=== PATIENT | female | born 1995 | race African-American/Black ===

== ENCOUNTER 2022-11-07 17:41 | Emergency (ER) | payer SELFPAY ==
[2022-11-07 17:42] VITALS: BP 119/70; PULSE 67; RESP 18; TEMP 36.4; O2SAT 100; BMI 40.6
--- NOTE | 2022-11-07 19:33 | EX.ED.DYSGE1 ---
HPI History of Present Illness Chief Complaint: Wound Check Informant: patient and friend Narrative Narrative: Patient is a 26-year-old female, Azerbaijani speaking, friend at the bedside to translate. She is presenting with postoperative abdominal pain, back pain and headaches. Patient had a 4 weeks ago in [facility]. This was a repeat . She states 3 days after the she started having weird pain at her incision site. Is been constant but she feels it is getting better. It was improved with Motrin but she ran out of it. 2 weeks ago she came to [place]. She notes the day she was discharged from the hospital she was diagnosed with pneumonia and put on 10 days of antibiotics. She also states that since her she has had low back pain and numbness in her right outer thigh. She did have an epidural with her . She did not tell her surgeon about this but they did not do anything or seem concerned. She notes that she had some intermittent leg swelling which has resolved and she is also had a mild headache. She denies having any issues with her blood pressure. She notes that at 8 months she traveled on foot from [facility] to [place] and came into the [facility] via an asylum program. Patient has had some drainage from her incision site. She is worried there might be something still at her because of the way the pain is. She went to an urgent care earlier but was transferred to the ER for further evaluation because of her degree of abdominal pain. Patient does not have any physician or [employer] locally. She is now residing in [facility] Medical History no medical history Home Medications acetaminophen 500 mg tablet 1,000 mg PO Q6H PRN pain #20 tabs 11/07/22 [Rx Last Taken Unknown] ibuprofen 600 mg tablet 600 mg PO Q6H PRN PRN pain #20 TABLETS 11/07/22 [Rx Last Taken Unknown] Allergy/AdvReac Type Severity Reaction Status Date / Time No Known Allergies Allergy Verified 11/07/22 17:44 Social History Smoking Status: Never smoker ROS ROS ED Constitutional Constitutional ED: Denies chills or fever(s) Eyes Eyes: Denies change in vision ENT ENT ED: Denies sore throat Cardiovascular Cardiovascular: Denies chest pain or palpitations Respiratory/Chest Respiratory/Chest: Reports dyspnea; Denies cough Gastrointestinal Gastrointestinal: Reports abdominal pain; Denies constipation, diarrhea, nausea or vomiting Genitourinary Genitourinary ED: Reports other Details: no vaginal bleeding currently ; Denies dysuria or hematuria Musculoskeletal Musculoskeletal: Reports back pain; Denies arthralgias or myalgias Integumentary Denies rash Neurologic Neurologic: Reports headache(s) and paresthesias RLE Psychiatric Psychiatric: Denies anxiety Hematologic/Lymphatic Hematologic/Lymphatic: Denies easy bleeding or easy bruising EXAM Physical Exam Const Vital Signs: 11/07/22 17:42 11/07/22 20:21 11/07/22 20:21 Temperature 97.5 F L 97.9 F Temperature Source Temporal Temporal Pulse Rate 67 70 70 Respiratory Rate 18 18 Blood Pressure 119/70 118/70 Blood Pressure Mean 86 86 Pulse Ox 100 97 Oxygen Delivery Method Room Air Nasal Cannula Positive well nourished, well developed and obese General Appearance ED: well developed and NAD Nutritional Appearance: obese HEENT Reports moist mucous membranes Negative for trauma Eyes PERRL and EOMs intact bilaterally Neck supple Neck Narrative: No meningeal signs General: Negative for tenderness Chest Wall inspection of chest normal and palpation of chest normal Resp normal respiratory effort and clear to auscultation bilaterally Cardio regular rhythm and no murmurs Rate: tachycardic GI GI Narrative: Patient has significant tenderness at incision site. Uterus is palpated at the level of the umbilicus. No peritoneal signs. Inspection: Negative for abdominal distention Auscultation: normoactive bowel sounds Palpation: soft and tender suprapubic Back/Spine no CVA tenderness Back/Spine Narrative: Lower lumbar and paraspinal tenderness to palpation. No overlying erythema. No pinpoint area of tenderness to palpation Lumbar Spine / Lower Back: lumbar spinal tenderness Extremity normal to inspection General Extremety ED: Negative for edema or tenderness General Extremity: Negative for edema Neuro oriented x3 Sensorium / Orientation: alert Motor Exam: Negative for general weakness Psych mental status grossly normal Skin Skin Narrative: Healing low transverse surgical incision. No associated erythema or drainage appreciated at this time. The area is slightly macerated however patient does have a protuberant abdomen that folds over the area. MDM MDM MDM Narrative Medical decision making narrative: Patient is evaluated for multiple complaints after . She appears nontoxic no acute distress. She has a lot of tenderness in her lower abdomen, more than I would expect this see given that she is 4-week status post . Do not see any obvious drainage or signs of cellulitis. She has a mild anemia of 10.0 which seems asymptomatic as she is not lightheaded and has normal vital signs. Suspect this is relatively normal given her postoperative status. She does not have a leukocytosis. CMP unremarkable. Urinalysis is normal with no signs of protein or infection. She is not hypertensive I do not think this is preeclampsia. CT of the abdomen and pelvis shows postsurgical changes but no signs of fluid collection, abscess or cellulitis. I do not think patient requires antibiotics. Case is discussed with [employer] on-call, Dr. Cynthia Simmons, who is agreeable with outpatient follow-up. Patient is given an abdominal binder. She is given IV fluids and Toradol in the ER does seem more comfortable. Is given a referral to the [facility]. Will be discharged with prescription for ibuprofen and Tylenol. Counseled that she does not have to fill the prescription she can just take [id number] Tylenol and ibuprofen instead. [employer] Technician used for all interactions with the patient. Patient given return precautions. Discharged home in stable condition. Lab Data Labs: Laboratory Results - last 24 hr 11/07/22 11/07/22 11/07/22 19:44 19:45 20:00 WBC 8.2 RBC 3.65 L Hgb 10.0 L Hct 33.5 L MCV 91.8 MCH 27.4 MCHC 29.9 L RDW Std Deviation 49.2 H RDW Coeff of Tejal 14.6 Plt Count 454 H MPV 9.5 Immature Gran % (Auto) 0.200 Neut % (Auto) 59.7 Lymph % (Auto) 30.6 [place] % (Auto) 6.7 Eos % (Auto) 2.1 Baso % (Auto) 0.7 Absolute Neuts (auto) 4.9 Absolute Lymphs (auto) 2.52 Nucleated RBC % 0 Sodium 137 Potassium 3.9 Chloride 107 Carbon Dioxide 28.0 Anion Gap 2 L BUN 13 Creatinine 0.58 Estim Creat Clear Calc 129.94 Est GFR (MDRD) Af Amer 160 Est GFR (MDRD) Non-Af 132 BUN/Creatinine Ratio 22.6 H Glucose 89 Calcium 9.7 Total Bilirubin 0.20 AST 26 ALT 35 Alkaline Phosphatase 142 H Total Protein 7.6 Albumin 3.5 Globulin 4.1 Albumin/Globulin Ratio 0.9 Urine Color Yellow Urine Clarity Clear Urine pH 6.5 Ur Specific [place] 1.015 Urine Protein Negative Urine Glucose (UA) Normal Urine Ketones Negative Urine Occult Blood Negative Urine Nitrite Negative Urine Bilirubin Negative Urine Urobilinogen Normal Ur Leukocyte Esterase Negative Urine RBC 0 SEEN Urine WBC 0 SEEN Ur Squamous Epith Cells 0-5 SEEN Urine Bacteria 0 SEEN Urine Mucus 0 SEEN Urine Test Negative Radiography Chest X-Ray - ED: 2 View, Read by ED Physician, Read by Radiologist and No Acute Disease Diagnostic Testing: Clinical Impression(s) from Imaging Studies Abdomen/Pelvis CT 11/07/22 20:31 IMPRESSION: Mildly enlarged uterus with visible scar overlying stranding density in the surrounding mesenteric fat likely representing normal postsurgical changes. No focal fluid collection or abnormal free fluid in the pelvis. Otherwise normal exam. Electronically Signed: Pablo Sharp DO at 21:33 EDT , Chest X-Ray 11/07/22 20:35 IMPRESSION: 1. No radiographic evidence of acute cardiopulmonary disease. Electronically Signed: Pablo Sharp DO at 21:12 EDT , Discharge Plan Triage Chief Complaint: Wound Check ED Provider: Mariluz Hook Dx/Rx/DC Orders Clinical Impression: Status post section, Lower abdominal pain, Headache, Paresthesia of right lower extremity Instructions: ED Post Op Wound Check, Pain Prescriptions: New ibuprofen 600 mg tablet 600 mg PO Q6H PRN PRN (Reason: pain) Qty: 20 0RF acetaminophen 500 mg tablet 1,000 mg PO Q6H PRN (Reason: pain) Qty: 20 0RF Primary Care Provider: Care Physician,No Primary Referrals: Cynthia Simmons DO [Med Staff - Active Staff] - 1 Week [facility] [Non-Staff] - As soon as possible Care Physician,No Primary [Primary Care Provider] - Activity Restrictions/Additional Instructions: Wear the abdominal binder. This should help with pain. Alternate ibuprofen and Tylenol. No signs of infection or acute abnormalities on your work-up today. Please follow-up with [employer]. You have also been referred to medical clinic for outpatient follow up/routine health maintenance. Disposition Disposition: Home, Self Care
[2022-11-07 19:50] LABS: Absolute Lymphocyte Count 2.52 X10^3/uL (0.83-4.51); Absolute Neutrophil Count 4.9 X10^3/uL (2.0-7.7); Basophil# 0.06 X10^3/uL; Basophil% 0.7 % (0-1); Eosinophil# 0.17 X10^3/uL; Eosinophils% 2.1 % (0-5); Hematocrit 33.5 % (37-47); Lymphocyte # 2.52 X10^3/ul (0.83-4.51); Lymphocyte % 30.6 % (19-41); Mean Corp Hgb Conc 29.9 g/dL (32-36); Mean Corpuscular Hgb 27.4 pg (27.0-32.0); Mean Corpuscular Volume 91.8 fL (81-99); Mean Platelet Vol. 9.5 fl (6.2-12.0); Monocyte# 0.55 X10^3/uL; Monocyte% 6.7 % (0-10); NRBC Flagged by Analyzer 0 % (0-5); Neutrophil # 4.91 X10^3/uL (2.7-7.7); Neutrophil % 59.7 % (47-70); Platelet Count 454 K/mm3 (150-450); RBC Distribution Width CV 14.6 % (11.6-14.6); RBC Distribution Width SD 49.2 fl (35.1-43.9); Red Blood Count 3.65 M/mm3 (4.2-5.4); White Blood Count 8.2 K/mm3 (4.4-11.0)
[2022-11-07] MEDS: Ketorolac 15 MG/ML Vial IV (20:05)
[2022-11-07] MEDS: 0.9% Normal Saline 1,000 ML 1000 ML IV (20:05)
[2022-11-07 20:13] LABS: ALB/GLOB Ratio 0.9 RATIO (0.9-2.4); AST(SGOT) 26 U/L (15-37); Alanine Aminotransfer ALT/SGPT 35 U/L (13-56); Albumin, Serum 3.5 g/dL (3.2-5.0); Alkaline Phosphatase 142 U/L (45-117); Anion Gap 2 (5-15); BUN 13 mg/dL (7-18); BUN/Creat Ratio 22.6 RATIO (10-20); Calcium,Total 9.7 mg/dL (8.5-10.1); Chloride 107 mmol/L (98-107); Creatinine, Serum 0.58 mg/dL (0.55-1.02); EST Glomerular Filtration Rate 132 mL/min (>60); Est Glom Filt Rate - Afr Amer 160 mL/min (>60); Estimated Creatinine Clearance 129.94 ml/min; Globulin 4.1 g/dL (2.2-4.2); Glucose 89 mg/dL (74-106); Potassium 3.9 mmol/L (3.5-5.1); Protein, Total 7.6 g/dL (6.4-8.2); Sodium Level 137 mmol/L (136-145)
[2022-11-07 20:21] VITALS: BP 118/70; PULSE 70; RESP 18; TEMP 36.6; O2SAT 97
--- NOTE | 2022-11-07 20:31 | CT_ITS ---
INDICATION: lower abd pain, s/p c cection, lumbar back pain EXAMINATION: CT ABDOMEN AND PELVIS WITH CONTRAST - CT Abdomen And Pelvis W/ Contrast Injection TECHNIQUE: Helically acquired images were obtained of the abdomen and pelvis following IV contrast. A radiation dose optimization technique was used for this scan. IV Contrast dosage and agent: 100 mL of Isovue-300. Oral contrast: None. COMPARISON: None. FINDINGS: LOWER CHEST: Lung bases are clear. No cardiomegaly or pericardial effusion. LIVER: Homogeneous. No focal mass. GALLBLADDER AND BILIARY TREE: No calcified gallstones. No gallbladder distension or wall edema. No intra- or extrahepatic biliary ductal dilation. PANCREAS: No focal cystic or solid mass. SPLEEN: Normal size without focal cystic or solid mass. ADRENAL GLANDS: No nodules. KIDNEYS, URETERS and BLADDER: Normal renal size and position. No mass. No hydronephrosis. Bladder is unremarkable. PERITONEUM: No ascites or free air. No other fluid collection. BOWEL: Normal appendix identified. No abnormally distended bowel loops or air fluid levels. No wall thickening or mass. No focal inflammatory changes. LYMPH NODES: No enlarged mesenteric or retroperitoneal lymph nodes. VESSELS: Aorta is non-dilated. REPRODUCTIVE ORGANS: The uterus is mildly enlarged. There is a scar visible. No focal mass lesion. Mild stranding density anterior to the motor uterine segment near the scar likely representing postsurgical changes from recent . No regional fluid collection or other evidence of complication. Ovaries are within normal limits of the exam. ABDOMINAL WALL: No discrete abdominal or pelvic wall hernia. BONES: No lytic or blastic abnormality. CT/Abdomen/Pelvis W IV Cont ONLY IMPRESSION: Mildly enlarged uterus with visible scar overlying stranding density in the surrounding mesenteric fat likely representing normal postsurgical changes. No focal fluid collection or abnormal free fluid in the pelvis. Otherwise normal exam. Electronically Signed: Pablo Sharp DO at 21:33 EDT ,
--- NOTE | 2022-11-07 20:35 | RAD_ITS ---
INDICATION: SOB EXAMINATION/TECHNIQUE: X-RAY - XR Chest 2 Views COMPARISON: None. FINDINGS: LINES/DEVICES: None. LUNGS: Symmetric normal lung volumes. No airspace opacity or abnormal interstitial pattern. No nodule or mass. No pleural effusion or pneumothorax. MEDIASTINUM AND CARDIOVASCULAR STRUCTURES: Normal size and contour of the cardiomediastinal silhouette. No evidence of pulmonary vascular congestion. BONES AND SOFT TISSUES: No fracture or focal osseous lesion. RAD/Chest PA and Lateral IMPRESSION: 1. No radiographic evidence of acute cardiopulmonary disease. Electronically Signed: Pablo Sharp DO at 21:12 EDT ,
[2022-11-07 20:44] LABS: Bacteria 0 SEEN /hpf (None Seen); Mucous, Urine 0 SEEN /hpf (<or=2+); Red Blood Cells-Urine 0 SEEN /hpf (0-5); White Blood Cells 0 SEEN /hpf (0-5)
[2022-11-07 20:51] LABS: Color, Urine Yellow (Yellow); Glucose, Dipstick Normal (Normal); Ketone-Dipstick Negative (Negative); Leukocyte Esterase-Dipstick Negative /ul (Negative); Nitrite-Dipstick Negative (Negative); Occult Blood-Urine Negative /ul (Negative); Protein-Dipstick Negative (Negative); Specific Gravity, Urine 1.015 (1.002-1.030); Urine Bilirubin Dipstick Negative (Negative); Urine Clarity Clear (Clear); Urine Urobilinogen Normal (Normal); Urine pH 6.5 (5.0 - 8.0)
[2022-11-07 21:03] LABS: Squamous Epithelial Cells - UA 0-5 SEEN /hpf (5-10)
[2022-11-07 21:07] LABS: Internal QC Validated? YES +Cl - CLEAR BKGD; Pregnancy, Urine Negative Negative
== END 2022-11-07 23:24 | disposition home or self-care (01) ==
PROVIDERS: Emergency Provider Emergency Medicine; Visit Provider Emergency Medicine
DX: O90.89 Other complications of the puerperium, not elsewhere classified (principal); R10.30 Lower abdominal pain, unspecified; R51.9 Headache, unspecified; M54.9 Dorsalgia, unspecified
CPT/HCPCS: 71046; 74177; 80053; 81001; 81025; 85025; 96361; 96374; 99283; J7030; Q9967

== ENCOUNTER 2024-02-16 18:33 | Emergency (ER) | payer SELFPAY ==
[2024-02-16 18:35] VITALS: BP 139/79; PULSE 123; RESP 24; TEMP 36.6; O2SAT 100
--- NOTE | 2024-02-16 18:42 | EKG12_ITS ---
Test Reason : ALT LOC Blood Pressure : / mmHG Vent. Rate : 118 BPM Atrial Rate : 118 BPM P-R Int : 150 ms QRS Dur : 076 ms QT Int : 314 ms P-R-T Axes : 044 052 014 degrees QTc Int : 440 ms Sinus tachycardia Otherwise normal ECG Confirmed by GLENNY PEREZ, CASA ([id number]), senior editor MARY MORRIS ([id number]) on 02/18/2024 2:28:08 PM Referred By: Confirmed By:SHABBIR MURRIETA MD
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
[2024-02-16] MEDS: LORazepam 2 MG/ML Syringe 1 MG IV (18:50)
[2024-02-16] MEDS: 0.9% Normal Saline (1000mL) 1,000 ML 999 ML IV (18:50)
[2024-02-16 18:55] LABS: Absolute Lymphocyte Count 2.99 X10^3/uL (0.83-4.51); Basophil# 0.03 X10^3/uL; Basophil% 0.3 % (0-1); Eosinophil# 0.03 X10^3/uL; Eosinophils% 0.3 % (0-5); Hematocrit 30.6 % (37-47); Hemoglobin 9.1 g/dL (12.0-15.0); Lymphocyte # 2.99 X10^3/ul (0.83-4.51); Lymphocyte % 25.4 % (19-41); Mean Corp Hgb Conc 29.7 g/dL (32-36); Mean Corpuscular Volume 73.9 fL (81-99); Mean Platelet Vol. 9.5 fl (6.2-12.0); Monocyte# 0.62 X10^3/uL; Monocyte% 5.3 % (0-10); NRBC Flagged by Analyzer 0 % (0-5); Neutrophil # 8.04 X10^3/uL (2.7-7.7); Neutrophil % 68.3 % (47-70); Platelet Count 484 K/mm3 (150-450); RBC Distribution Width CV 17.3 % (11.6-14.6); RBC Distribution Width SD 46.3 fl (35.1-43.9); Red Blood Count 4.14 M/mm3 (4.2-5.4); White Blood Count 11.8 K/mm3 (4.4-11.0)
--- NOTE | 2024-02-16 18:55 | RAD_ITS ---
INDICATION: shortness of breath EXAMINATION/TECHNIQUE: X-RAY - XR Chest 1 View COMPARISON: 11/07/2022 FINDINGS: LIFE-SUPPORT AND LINES: 1. None HEART AND VESSELS: The cardiac silhouette, pulmonary vasculature have normal appearance. No evidence of congestive failure. LUNGS AND PLEURAL SPACES: Lungs are clear. No focal infiltrate, consolidation or effusions. No evidence of pneumothorax. No pulmonary mass is noted. MEDIASTINUM AND HILAR REGIONS: No masses adenopathy noted. No areas of calcification. Visualized upper airway is normal in position. BONY ELEMENTS: No acute bony changes noted. RAD/Chest 1 View (Portable) IMPRESSION: 1. No evidence of acute cardiopulmonary process Electronically Signed: Dmitry Hare MD at 19:12 EDT ,
[2024-02-16 19:15] LABS: Anion Gap 6 (5-15); BUN 9 mg/dL (7-18); BUN/Creat Ratio 9.6 RATIO (10-20); Calcium,Total 9.9 mg/dL (8.5-10.1); Chloride 109 mmol/L (98-107); Creatinine, Serum 0.94 mg/dL (0.55-1.02); EST Glomerular Filtration Rate 74 mL/min (>60); Est Glom Filt Rate - Afr Amer 90 mL/min (>60); Glucose 125 mg/dL (74-106); Potassium 3.4 mmol/L (3.5-5.1); Sodium Level 138 mmol/L (136-145); Troponin-I HS < 3 pg/mL (3.0-54.0)
[2024-02-16 19:21] LABS: D-Dimer Quantitative (DVT/PE) < 0.27 FEU/ug/m (0.27-0.49)
[2024-02-16 19:31] LABS: Mucous, Urine 0 SEEN /hpf (<or=2+); Red Blood Cells-Urine 0 SEEN /hpf (0-5)
[2024-02-16 19:34] VITALS: BP 117/70; PULSE 120; RESP 20; O2SAT 95
[2024-02-16 19:46] LABS: Color, Urine Yellow (Yellow); Glucose, Dipstick Normal (Normal); Ketone-Dipstick 5 mg/dl (Negative); Leukocyte Esterase-Dipstick Negative /ul (Negative); Nitrite-Dipstick Negative (Negative); Occult Blood-Urine Negative /ul (Negative); Protein-Dipstick 30 mg/dl (Negative); Urine Bilirubin Dipstick Negative (Negative); Urine Clarity Sl. Cloudy (Clear); Urine Urobilinogen 1 mg/dl (Normal); Urine pH 6.5 (5.0 - 8.0)
[2024-02-16 19:49] LABS: Internal QC Validated? YES +Cl - CLEAR BKGD; Pregnancy, Urine Negative Negative
[2024-02-16 19:53] LABS: Bacteria 1+ /hpf (None Seen); Squamous Epithelial Cells - UA 5-10 SEEN /hpf (5-10); White Blood Cells 0-5 SEEN /hpf (0-5)
[2024-02-16 20:00] VITALS: BP 110/62; PULSE 112; RESP 18; O2SAT 99
[2024-02-16 20:06] VITALS: BP 110/62; PULSE 112; RESP 18; TEMP 36.6; O2SAT 99
[2024-02-16 20:07] LABS: Amphetamine Urine VISTA NEGATIVE (<1000 ng/mL); Barbiturate Urine VISTA NEGATIVE (< 200 ng/mL); Benzodiazepine Urine VISTA NEGATIVE (< 200 ng/mL); Cocaine Urine VISTA NEGATIVE (< 300 ng/mL); Ecstacy Urine VISTA NEGATIVE (< 500 ng/mL); Methadone Urine VISTA NEGATIVE (< 300 ng/mL); PCP Urine VISTA NEGATIVE (< 25 ng/mL); THC Urine VISTA NEGATIVE (< 50 ng/mL); Vista UDS pH Range 6
== END 2024-02-16 20:12 | disposition home or self-care (01) ==
LOC: ED 20:11
PROVIDERS: Nurse Practitioner; Emergency Provider Emergency Medicine; Visit Provider Emergency Medicine
DX: F41.9 Anxiety disorder, unspecified (principal); E66.9 Obesity, unspecified; R06.09 Other forms of dyspnea
CPT/HCPCS: 71045; 80048; 80307; 81001; 81025; 84484; 85025; 85379; 93005; 96361; 96374; 99284; J7030; A4216

== ENCOUNTER 2025-01-08 00:46 | Emergency (ER) | payer BC, SELFPAY ==
[2025-01-08 00:49] VITALS: BP 125/66; PULSE 73; RESP 22; TEMP 36.7; O2SAT 100; BMI 44.6
[2025-01-08 00:56] VITALS: BP 125/66; PULSE 70; RESP 20; TEMP 36.7; O2SAT 100
--- NOTE | 2025-01-08 00:59 | CT_ITS ---
PROCEDURE: BRAIN/HEAD WITHOUT CONTRAST 01/08/2025 REASON FOR EXAM: WEAKNESS TECHNIQUE: BRAIN/HEAD WITHOUT CONTRAST Coronal and Sagittal reconstruction series were provided. One or more dose reduction techniques were used (e.g., Automated exposure control, adjustment of the mA and/or kV according to patient size, use of iterative reconstruction technique. RADIATION DOSE SUMMARY: CTDlvol: 41.99 mGy DLP: 829 mGycm COMPARISON: None. FINDINGS: Normal size of the ventricles and extra-axial spaces for the patient's age. Normal white matter tracts of the supratentorial brain. Normal basal ganglia and thalami. Normal brainstem. Normal cerebellum. There is no demonstrated extra-axial, intraparenchymal, or intraventricular hemorrhage. There are no findings of an acute ischemic infarction. Normal calvarium. There is no demonstrated fracture. Normal soft tissue structures. Normal visualized paranasal sinuses. CT/Brain/Head without Contrast IMPRESSION: Normal unenhanced CT scan of the brain. Reading Location: [facility]
[2025-01-08 01:10] LABS: Absolute Lymphocyte Count 2.76 X10^3/uL (0.83-4.51); Absolute Neutrophil Count 4.5 X10^3/uL (2.0-7.7); Basophil# 0.05 X10^3/uL; Basophil% 0.6 % (0-1); Bedside Glucose 99 mg/dL (74-106); Eosinophil# 0.11 X10^3/uL; Eosinophils% 1.4 % (0-5); Hematocrit 31.6 % (37-47); Hemoglobin 9.4 g/dL (12.0-15.0); Lymphocyte # 2.76 X10^3/ul (0.83-4.51); Lymphocyte % 34.3 % (19-41); Mean Corp Hgb Conc 29.7 g/dL (32-36); Mean Corpuscular Hgb 22.2 pg (27.0-32.0); Mean Corpuscular Volume 74.5 fL (81-99); Mean Platelet Vol. 9.9 fl (6.2-12.0); Monocyte# 0.57 X10^3/uL; Monocyte% 7.1 % (0-10); NRBC Flagged by Analyzer 0 % (0-5); Neutrophil # 4.53 X10^3/uL (2.7-7.7); Neutrophil % 56.2 % (47-70); Platelet Count 440 K/mm3 (150-450); RBC Distribution Width CV 18.2 % (11.6-14.6); RBC Distribution Width SD 48.4 fl (35.1-43.9); Red Blood Count 4.24 M/mm3 (4.2-5.4); White Blood Count 8.1 K/mm3 (4.4-11.0)
--- NOTE | 2025-01-08 01:15 | RAD_ITS ---
PROCEDURE: CHEST 1 VIEW (PORTABLE) 01/08/2025 REASON FOR EXAM: WEAKNESS TECHNIQUE: Frontal view of the chest. COMPARISON: 02/16/2024. FINDINGS: The lungs are expanded. There is no demonstrated parenchymal abnormality. There is no demonstrated pleural abnormality. Normal heart and pericardium. Normal mediastinum and kaylee. Normal visualized pulmonary arteries. Normal visualized aortic arch and descending thoracic aorta. Normal visualized thoracic spine. Normal visualized ribs, clavicles, and shoulders. There is no demonstrated abnormality of the visualized soft tissue structures of the upper abdomen. RAD/Chest 1 View (Portable) IMPRESSION: No evidence for acute abnormality. Reading [facility]
--- OUTSIDE RECORDS SUMMARY | 2025-01-08 01:19 | XMS RPT_ITS | CCD ---
Author Organization [facility] Care Team Providers Care Molded Goods Spot Picker Name Role Phone Care Physician, No Primary Primary Care Unava Ej Krishna Attending Unavailable Medications Current Medications Medication Drug Class(es) Dates Sig (Normalized) Sig (Original) acetaminophen 500 mg oral tablet (1 source) Start: 11-07-2022 take 1000 mg by mouth every six hours Acetaminophen Active 1000 MG PO EVERY 6 HOURS November 07, 2022 12:00am ibuprofen 600 mg oral tablet (1 source) Nonsteroidal Anti-inflammatory Drug Start: 11-07-2022 take 600 mg by mouth every six hours as needed Ibuprofen Active 600 MG PO EVERY 6 HOURS NEEDED November 07, 2022 12:00am Problems Problem Classification Problem Date Documented Da te Episodic/Chronic Abdominal pain (1 source) Lower abdominal pain; Translations: [Lower abdominal pain, unspecified] 11-07-2022 Episodic Headache; including migraine (1 source) Headache; Translations: [Headache] 11-07-2022 Episodic Other lower respiratory disease (1 source) Other forms of dyspnea; Translations: [Other forms of dyspnea] Onset: 03-13-2024 Episodic Other nervous system disorders (1 source) Paresthesia of right lower limb; Translations: [Paresthesia of skin] 11-07-2022 Episodic Results Test Name Value Interpretation Reference Range Facility 12 Lead EKGon 02-16-2024 12 Lead EKG [facility] Cardiovascular Services [address] [place] [address] 12 Lead EKG 02/16/24 1850 MR#: [id number] Acct: [id number] Name: SAUL CORONA Rep #: [id number] : 1995 28 From: Umm Peterson MD Attending Dr: Status: DEP ER Ordering Dr: Levon Stanford [employer]OVE WR[employer]PER-C Date: 02/16/24 Location: ED Sex: F AA Admitted: Test Reason : ALT LOC Blood Pressure : / mmHG Vent. Rate : 118 BPM Atrial Rate : 118 BPM P-R Int : 150 ms QRS Dur : 076 ms QT Int : 314 ms P-R-T Axes : 044 052 014 degrees QTc Int : 440 ms Sinus tachycardia Otherwise normal ECG Confirmed by GLENNY PEREZ, CASA ([id number]), editor news MARY MORRIS ([id number]) on 02/18/2024 2:28:08 PM Referred By: Confirmed By:SHABBIR PETERSON MD 02/18/24 1428 Date Umm Peterson MD CC: PRECIOUS Stanford; Dr. Ej Guardado, DO; No Primary Care Physician Signed Normal [facility] Basic Metabolic Profile (BMP )on 02-16-2024 BUN/CRE 9.6 RATIO Low 10-20 [facility] Comment on above: Order Comment: 'TROP ' Serial specimen #1, #2 or #3: 1 Performed By: #### L 501.4020, L100.0100, L300.8000, L500.2500 #### [facility] Laboratory [address] [place], [address] CA,Total 9.9 mg/dL Normal 8.5-10.1 [facility] Comment on above: Order Comment: 'TROP ' Serial specimen #1, #2 or #3: 1 Performed By: #### L 501.4020, L100.0100, L300.8000, L500.2500 #### [facility] Laboratory [address] [place], [address] Chloride [Moles/Vol] 109 mmol/L High 98-107 [facility] Comment on above: Order Comment: 'TROP ' Serial specimen #1, #2 or #3: 1 Performed By: #### L 501.4020, L100.0100, L300.8000, L500.2500 #### [facility] Laboratory [address] [place], [address] CO2 [Moles/Vol] 23.0 mmol/L Normal 21.0-32.0 [facility] Comment on above: Order Comment: 'TROP ' Serial specimen #1, #2 or #3: 1 Performed By: #### L 501.4020, L100.0100, L300.8000, L500.2500 #### [facility] Laboratory [address] [place], [address] Creatinine [Mass/Vol] 0.94 mg/dL Normal 0.55-1.02 [facility] Comment on above: Order Comment: 'TROP ' Serial specimen #1, #2 or #3: 1 Result Comment: The validity of the calculated GFR GFRAA in patients over 70 years has not been determined. Clinical correlation is essential. Performed By: #### L 501.4020, L100.0100, L300.8000, L500.2500 #### [facility] Laboratory [address] [place], [address] EST GFR - AA 90 mL/min Normal >60 [facility] Comment on above: Order Comment: 'TROP ' Serial specimen #1, #2 or #3: 1 Result Comment: Afri can Cymraes GFR Calc Performed By: #### L 501.4020, L100.0100, L300.8000, L500.2500 #### [facility] Laboratory [address] [place], [address] GAP 6 Normal 5-15 [facility] Comment on above: Order Comment: 'TROP ' Serial specimen #1, #2 or #3: 1 Performed By: #### L 501.4020, L100.0100, L300.8000, L500.2500 #### [facility] Laboratory [address] [place], [address] GFR/1.73 sq M.predicted among non-blacks MDRD (S/P/Bld) [Vol rate/Area] 74 mL/min/{1.73_m2} Normal >60 [facility] Comment on above: Order Comment: 'TROP ' Serial specimen #1, #2 or #3: 1 Result Comment: Non- GFR Calc Performed By: #### L 501.4020, L100.0100, L300.8000, L500.2500 #### [facility] [address] [place], [address] Glucose [Mass/Vol] 125 mg/dL High 74-106 [facility] Comment on above: Order Comment: 'TROP ' Serial specimen #1, #2 or #3: 1 Result Comment: Fast ing Glucose result from 100 to 125 mg/dL suggests IMPAIRED HOMEOSTASIS per A.D.A. criteria. Performed By: #### L 501.4020, L100.0100, L300.8000, L500.2500 #### [facility] [address] [place], [address] Potassium [Moles/Vol] 3.4 mmol/L Low 3.5-5.1 [facility] Comment on above: Order Comment: 'TROP ' Serial specimen #1, #2 or #3: 1 Performed By: #### L 501.4020, L100.0100, L300.8000, L500.2500 #### [facility] [address] [place], [address] Sodium [Moles/Vol] 138 mmol/L Normal 136-145 [facility] Comment on above: Order Comment: 'TROP ' Serial specimen #1, #2 or #3: 1 Performed By: #### L 501.4020, L100.0100, L300.8000, L500.2500 #### [facility] [address] [place], [address] Urea nitrogen [Mass/Vol] 9 mg/dL Normal 7-18 [facility] Comment on above: Order Comment: 'TROP ' Serial specimen #1, #2 or #3: 1 Performed By: #### L 501.4020, L100.0100, L300.8000, L500.2500 #### [facility] [address] [place], [address] CBC W/Diff, Automatedon 07-2 -2023 Absolute Lymph 2.99 X10 3/uL Normal 0.83-4.51 [facility] Comment on above: Performed By: #### L 501.4020, L100.0100, L300.8000, L500.2500 #### [facility] [address] [place], [address] Absolute Neut 8.0 X10 3/uL High 2.0-7.7 [facility] Comment on above: Performed By: #### L 501.4020, L100.0100, L300.8000, L500.2500 #### [facility] [address] [place], [address] Basophils/100 WBC (Bld) 0.3 % Normal 0-1 [facility] Comment on above: Performed By: #### L 501.4020, L100.0100, L300.8000, L500.2500 #### [facility] [address] [place], [address] Eosinophils/100 WBC (Bld) 0.3 % Normal 0-5 [facility] Comment on above: Performed By: #### L 501.4020, L100.0100, L300.8000, L500.2500 #### [facility] [address] [place], [address] Erythrocyte distribution width (RBC) [Ratio] 17.3 % High 11.6-14.6 [facility] Comment on above: Performed By: #### L 501.4020, L100.0100, L300.8000, L500.2500 #### [facility] Laboratory [address] [place], [address] Hematocrit (Bld) [Volume fraction] 30.6 % Low 37-47 [facility] Comment on above: Performed By: #### L 501.4020, L100.0100, L300.8000, L500.2500 #### [facility] Laboratory [address] [place], [address] Hemoglobin (Bld) [Mass/Vol] 9.1 g/dL Low 12.0-15.0 [facility] Comment on above: Performed By: #### L 501.4020, L100.0100, L300.8000, L500.2500 #### [facility] [address] [place], [address] IG% 0.400 Normal 0.0-0.9 [facility] Comment on above: Result Comment: IG% - Immature Granulocytes (promyelocytes, myelocytes and metamyelocytes) > 1% indicates that a LEFT SHIFT is Present. Performed By: #### L 501.4020, L100.0100, L300.8000, L500.2500 #### [facility] [address] [place], [address] Lymphocytes/100 WBC (Bld) 25.4 % Normal 19-41 [facility] Comment on above: Performed By: #### L 501.4020, L100.0100, L300.8000, L500.2500 #### [facility] [address] [place], [address] MCH (RBC) [Entitic mass] 22.0 pg Low 27.0-32.0 [facility] Comment on above: Performed By: #### L 501.4020, L100.0100, L300.8000, L500.2500 #### [facility] [address] [place], [address] MCHC (RBC) [Mass/Vol] 29.7 g/dL Low 32-36 [facility] Comment on above: Performed By: #### L 501.4020, L100.0100, L300.8000, L500.2500 #### [facility] [address] [place], [address] MCV (RBC) [Entitic vol] 73.9 fL Low 81-99 [facility] Comment on above: Performed By: #### L 501.4020, L100.0100, L300.8000, L500.2500 #### [facility] [address] [place], [address] Monocytes/100 WBC (Bld) 5.3 % Normal 0-10 [facility] Comment on above: Performed By: #### L 501.4020, L100.0100, L300.8000, L500.2500 #### [facility] [address] [place], [address] Neutrophils/100 WBC (Bld) 68.3 % Normal 47-70 [facility] Comment on above: Performed By: #### L 501.4020, L100.0100, L300.8000, L500.2500 #### [facility] Laboratory [address] [place], [address] Nucleated RBC (Bld) [#/Vol] 0 10*3/uL Normal 0-5 [facility] Comment on above: Performed By: #### L 501.4020, L100.0100, L300.8000, L500.2500 #### [facility] Laboratory [address] [place], [address] Platelet mean volume (Bld) [Entitic vol] 9.5 fL Normal 6.2-12.0 [facility] Comment on above: Performed By: #### L 501.4020, L100.0100, L300.8000, L500.2500 #### [facility] [address] [place], [address] Platelets (Bld) [#/Vol] 484 10*3/uL High 150-450 [facility] Comment on above: Performed By: #### L 501.4020, L100.0100, L300.8000, L500.2500 #### [facility] [address] [place], [address] RBC (Bld) [#/Vol] 4.14 10*6/uL Low 4.2-5.4 [facility] Comment on above: Performed By: #### L 501.4020, L100.0100, L300.8000, L500.2500 #### [facility] [address] [place], [address] RDW SD 46.3 fl High 35.1-43.9 [facility] Comment on above: Performed By: #### L 501.4020, L100.0100, L300.8000, L500.2500 #### [facility] [address] [place], [address] WBC (Bld) [#/Vol] 11.8 10*3/uL High 4.4-11.0 [facility] Comment on above: Performed By: #### L 501.4020, L100.0100, L300.8000, L500.2500 #### [facility] Laboratory [address] [place], [address] Chest 1 View (Portable)on Chest 1 View (Portable) [facility] Imaging Services [address] [place] [address] Chest 1 View (Portable) MR#: [id number] Acct: [id number] Name: SAUL CORONA Rep #: [id number] : 1995 F 28 From: Dmitry Wolf PCP: Care Physician,No Primary Status: PRE ER Study: Chest 1 View (Portable) Date of Exam: 02/16/24 Exam# [id number] Ordering Dr: Levon Stanford GLOVE [employer]PER-C -[id number] INDICATION: shortness of breath EXAMINATION/TECHNIQ UE: X-RAY - XR Chest 1 View COMPARISON: 11/07/2022 FINDINGS: LIFE-SUPPORT AND LINES: 1. None HEART AND VESSELS: The cardiac silhouette, pulmonary vasculature have normal appearance. No evidence of congestive failure. LUNGS AND PLEURAL SPACES: Lungs are clear. No focal infiltrate, consolidation or effusions. No evidence of pneumothorax. No pulmonary mass is noted. MEDIASTINUM AND HILAR REGIONS: No masses adenopathy noted. No areas of calcification. Visualized upper airway is normal in position. BONY ELEMENTS: No acute bony changes noted. RAD/Chest 1 View (Portable) IMPRESSION: 1. No evidence of acute cardiopulmonary process Electronically Signed: Dmitry Hare MD at 19:12 EDT , CC: PRECIOUS Stanford; No Primary Care Physician Licensing Engineer: Signed Normal [facility] D-Dimer Quantitative (DVT/PE )on 02-16-2024 D-DIMER QUANT < 0.27 Low 0.27-0.49 [facility] Comment on above: Result Comment: NORM AL D-Dimer level (<0.50) indicates no DVT or PE. Performed By: #### L 501.4020, L100.0100, L300.8000, L500.2500 #### [facility] Laboratory [address] [facility] [place], [address] Emergency Department Summary on 02-16-2024 Emergency Department Summary [facility] Medical Records Department [address] [place] [address] Emergency Department Summary 02/16/24 MR#: [id number] Acct: [id number] Name: SAUL CORONA Rep #: [id number] : 1995 28 From: Levon LANG PCP: Care Physician,No Primary Status:DEP ER Location: ED HPI History of Present Illness Chief Complaint: Alt LOC Narrative Narrative: Patient is a 28-year-old female with history of obesity who presents to the emergency department via EMS as well as the police. Patient is [place], her brother is here and able to translate. Per the ambulance, there was a call to 911 then there was a hanging up. When the police arrived, the patient was on the sidewalk sitting and was hysterical and would not talk. Patient does appear to be alert and oriented. Speaking to the brother, she is unaware of any domestic violence, per the patient she has not been harmed tonight. He does state that the patient looks anxious and that she has had something like this before. Patient was recently in [place] and returned 1 week ago. Patient states she does have some chest pain. PFSH PFSH Medical History no medical history Home Medications ???Medication ???Instructions ???Recorded ???Last Taken ???Type acetaminophen 500 mg tablet 1,000 mg (2 x 500 mg) PO Q6H PRN 11/07/22 Unknown Rx pain #20 tabs ibuprofen 600 mg tablet 600 mg PO Q6H PRN PRN pain #20 11/07/22 Unknown Rx TABLETS Allergy/AdvReac Type Severity Reaction Status Date / Time No Known Allergies Allergy Verified 11/07/22 17:44 Social History Smoking Status: Never smoker ROS ROS ED ROS Narrative Constitutional: Negative for fever, chills, weight loss, weakness Eyes: Negative for vision loss, vision change, double vision ENT: Negative for any sore throat, ear pain, congestion Cardiovascular: Negative for any tightness, palpitations. Positive for chest pain Respiratory: Negative for any cough, sputum production, hemoptysis, dyspnea on exertion, orthopnea. Positive for dyspnea Gastrointestinal: Negative for any abdominal pain, nausea, vomiting, diarrhea, constipation, blood in stool, blood in vomit : Negative for any urinary frequency, dysuria, retention, blood in urine Muscle skeletal: Negative for any neck pain, back pain Neurological: Negative for any headache, syncope, dizziness Skin: Negative for any rashes, itching, abrasions, lacerations Psychiatric: Negative for any depression, anxiety, stress, suicidal ideation, homicidal ideation Hematologic: Negative for any excessive bruising, easy bleeding EXAM Physical Exam Narrative Exam Narrative: Vital signs reviewed. Patient on arrival to the ER, patient is breathing rapidly, tearful. Patient does speak Andorran, patient's brother is bedside, the patient is not speaking, she is only moving her head, intermittently clutching her chest. HEET: Head normocephalic atraumatic, TMs clear bilaterally. Posterior pharynx is clear, moist mucous membranes. Nares clear bilaterally. Tearful Neck: Supple with no lymphadenopathy or tenderness. No signs of meningismus. Cardiac: Tachycardic rate no murmurs gallops or rubs, equal peripheral pulses bilaterally. Respiratory: Lungs clear to auscultation bilaterally. No chest tenderness. Abdomen: Soft, nontender, nondistended. No abdominal bruit or pulsatile masses. No hepatosplenomegaly Extremities: No peripheral edema, no signs of gross trauma or deformity. Active full range of motion of all extremities. Neuro: Cranial nerves II through XII intact, no focal neurological deficits. Skin: Clean dry and intact with no rash, purpura, petechiae, vesicles or pustules. Backs/flank: No CVA tenderness, no midline spinal tenderness, no deformity. Psych: Normal mood and affect. No SI, HI or acute psychosis. Const Vital Signs: 02/16/24 18:35 02/16/24 18:54 02/16/24 19:34 Temperature 97.8 F Temperature Source Temporal Pulse Rate 123 H 120 H Respiratory Rate 24 H 20 H Blood Pressure 139/79 H 117/70 Blood Pressure Mean 99 85 Pulse Ox 100 95 Oxygen Delivery Method Room Air Room Air Room Air 02/16/24 20:00 Temperature Temperature Source Pulse Rate 112 H Respiratory Rate 18 Blood Pressure 110/62 Blood Pressure Mean 78 Pulse Ox 99 Oxygen Delivery Method Room Air Positive obese Nutritional Appearance: obese Physical Exam Const Vital Signs: 02/16/24 18:35 02/16/24 18:54 02/16/24 19:34 Temperature 97.8 F Temperature Source Temporal Pulse Rate 123 H 120 H Respiratory Rate 24 H 20 H Blood Pressure 139/79 H 117/70 Blood Pressure Mean 99 85 Pulse Ox 100 95 Oxygen Delivery Method Room Air Room Air Room Air 02/16/24 20:00 (more content not included)... Normal [facility] L501.4020on 02-16-2024 TROPONIN-I HS < 3 Low 3.0-54.0 [facility] Comment on above: Order Comment: 'TROP ' Serial specimen #1, #2 or #3: 1 Result Comment: Gustavo pineda Note: New Test Units and Gender Specific Reference Ranges. For more information see Policy Stat Procedure [place] High Sensitivity Troponin (TNIH) and attachments. Performed By: #### L 501.4020, L100.0100, L300.8000, L500.2500 #### [facility] Laboratory [address] [place], [address] ,Urineon 02-16-2024 Beta HCG ( test) Ql (U) Negative Normal [facility] Comment on above: Order Comment: ANGELITA CTOR TO SPECIFY Result Comment: Very dilute urine specimens, as indicated by a low specific gravity, may not contain sales representative girls' apparel levels of hCG. If is still suspected, a first morning urine specimen should be collected 48 hours later and tested. Performed By: #### L 400.7600, L400.0001 #### [facility] Laboratory [address] [place], [address] Urinalysis, Completeon 02-15 BACTERIA 1+ /hpf Normal None Seen [facility] Comment on above: Order Comment: ANGELITA CTOR TO SPECIFY Performed By: #### L 400.7600, L400.0001 #### [facility] Laboratory [address] [place], [address] EPI,SQUAMOUS 5-10 SEEN Normal 5-10 [facility] Comment on above: Order Comment: ANGELITA CTOR TO SPECIFY Performed By: #### L 400.7600, L400.0001 #### [facility] Laboratory [address] [place], [address] WBC 0-5 SEEN Normal 0-5 [facility] Comment on above: Order Comment: ANGELITA CTOR TO SPECIFY Performed By: #### L 400.7600, L400.0001 #### [facility] [address] [place], [address] Mucus Ql (Urine sed) 0 SEEN Normal [facility] Comment on above: Order Comment: ANGELITA CTOR TO SPECIFY Performed By: #### L 400.7600, L400.0001 #### [facility] Laboratory [address] [place], [address] RBC 0 SEEN Normal 0-5 [facility] Comment on above: Order Comment: ANGELITA CTOR TO SPECIFY Performed By: #### L 400.7600, L400.0001 #### [facility] [address] [place], [address] Urine Drug Screen (VISTA)on 02-16-2024 AMPHETAMINES Negative Normal <1000 ng/mL [facility] Comment on above: Performed By: #### L 505.5000 #### [facility] [address] [place], [address] BARBITIURATES Negative Normal < 200 ng/mL [facility] Comment on above: Performed By: #### L 505.5000 #### [facility] [address] [place], [address] BENZODIAZIPINE Negative Normal < 200 ng/mL [facility] Comment on above: Performed By: #### L 505.5000 #### [facility] [address] [place], [address] COCAINE Negative Normal < 300 ng/mL [facility] Comment on above: Performed By: #### L 505.5000 #### [facility] [address] [place], [address] ECSTACY Negative Normal < 500 ng/mL [facility] Comment on above: Performed By: #### L 505.5000 #### [facility] [address] [place], [address] METHADONE Negative Normal < 300 ng/mL [facility] Comment on above: Performed By: #### L 505.5000 #### [facility] Laboratory [address] [place], [place], [address] OPIATES Negative Normal < 300 ng/mL [facility] Comment on above: Performed By: #### L 505.5000 #### [facility] [address] [place], [address] PCP Negative Normal < 25 ng/mL [facility] Comment on above: Performed By: #### L 505.5000 #### [facility] Laboratory [address] [facility] [address] THC Negative Normal < 50 ng/mL [facility] Comment on above: Performed By: #### L 505.5000 #### [facility] [address] [place], [place], [address] VISTA UDS PH 6 Normal [facility] Comment on above: Performed By: #### L 505.5000 #### [facility] [address] [place], [place], [address] Absolute lymphocyte countOrd ered By: Dr. Hook on 11-07-2022 Lymphocytes Auto (Unsp spec) [#/Vol] 2.52 10*3/uL 0.83-4.51 [facility] Basophil percentageOrdered B y: Dr. Hook on 11-07-2022 Basophil percentage 0 SEEN /hpf 0-5 [facility] Bilirubin [Mass/Vol] 0.20 mg/dL 0.20-1.00 [facility] Comment on above: For patients on eltr ombopag therapy, use of Dimension [place] TBIL is not recommended. Chloride [Moles/Vol] 107 mmol/L 98-107 [facility] Glucose [Mass/Vol] 89 mg/dL 74-106 [facility] Potassium [Moles/Vol] 3.9 mmol/L 3.5-5.1 [facility] Protein [Mass/Vol] 7.6 g/dL 6.4-8.2 [facility] Sodium [Moles/Vol] 137 mmol/L 136-145 [facility] Basophils/100 WBC (Bld) 0.7 % 0-1 [facility] Eosinophils/100 WBC (Bld) 2.1 % 0-5 [facility] Neutrophils (Bld) [#/Vol] 4.9 10*3/uL 2.0-7.7 [facility] Neutrophils/100 WBC (Bld) 59.7 % 47-70 [facility] WBC (Bld) [#/Vol] 8.2 10*3/uL 4.4-11.0 [facility] Bilirubin Test strip Ql (U)O rdered By: Dr. Hook on 11-07-2022 Bilirubin Ql (U) Negative Negative [facility] Blood erythrocytes count (nu mber/volume)Ordered By: Dr. Hook on 11-07-2022 RBC (Bld) [#/Vol] 3.65 10*6/uL 4.2-5.4 [facility] Blood hemoglobin measurement (mass/volume)Ordered By: Dr. Hook on 11-07-2022 Hemoglobin (Bld) [Mass/Vol] 10.0 g/dL 12.0-15.0 [facility] Blood lymphocytes/100 leukoc ytesOrdered By: Dr. Hook on 11-07-2022 Lymphocytes/100 WBC (Bld) 30.6 % 19-41 [facility] Blood monocytes/100 leukocyt esOrdered By: Dr. Hook on 11-07-2022 Monocytes/100 WBC (Bld) 6.7 % 0-10 [facility] Blood platelet mean volumeOr dered By: Dr. Hook on 11-07-2022 Platelet mean volume (Bld) [Entitic vol] 9.5 fL 6.2-12.0 [facility] Determination of erythrocyte mean corpuscular volume (MCV)Ordered By: Dr. Hook on 11-07-2022 MCV (RBC) [Entitic vol] 91.8 fL 81-99 [facility] Hematocrit Auto (Bld) [Volum e fraction]Ordered By: Dr. Hook on 11-07-2022 Hematocrit (Bld) [Volume fraction] 33.5 % 37-47 [facility] Ketones Test strip Ql (U)Ord ered By: Dr. Hook on 11-07-2022 Ketones Ql (U) Negative Negative [facility] Laboratory - Chemistry and C hemistry - challengeOrdered By: Dr. Hook on 11-07-2022 HCG ( test) Ql (U) Negative [facility] Comment on above: Very dilute urine sp ecimens, as indicated by a low specificgravity, may not contain sales representative girls' apparel levels of hCG. If is still suspected, a first morning urinespecimen should be collected 48 hours later and tested. ALP [Catalytic activity/Vol] 142 U/L 45-117 [facility] ALT [Catalytic activity/Vol] 35 U/L 13-56 [facility] CO2 [Moles/Vol] 28.0 mmol/L 21.0-32.0 [facility] Globulin (S) [Mass/Vol] 4.1 g/dL 2.2-4.2 [facility] Urea nitrogen/Creatinine [Mass ratio] 22.6 mg/mg 10-20 [facility] Laboratory - Hematology and Cell countsOrdered By: Dr. Hook on 11-07-2022 Erythrocyte distribution width (RBC) [Entitic vol] 49.2 fL 35.1-43.9 [facility] Erythrocyte distribution width (RBC) [Ratio] 14.6 % 11.6-14.6 [facility] Immature granulocytes/100 WBC (Bld) 0.200 % 0.0-0.9 [facility] Comment on above: IG% - Immature Granu locytes (promyelocytes, myelocytes and metamyelocytes) > 1% indicates that a LEFT SHIFT is Present. MCH (RBC) [Entitic mass] 27.4 pg 27.0-32.0 [facility] Nucleated RBC/100 WBC (Bld) [Ratio] 0 % 0-5 [facility] MCHC Auto (RBC) [Mass/Vol]Or dered By: Dr. Hook on 11-07-2022 MCHC (RBC) [Mass/Vol] 29.9 g/dL 32-36 [facility] Mucus LM Ql (Urine sed)Order ed By: Dr. Hook on 11-07-2022 Mucus Ql (Urine sed) 0 SEEN /hpf [facility] Nitrite Test strip Ql (U)Ord ered By: Dr. Hook on 11-07-2022 Nitrite Ql (U) Negative Negative [facility] No Panel InformationOrdered By: Dr. Hook on 11-07-2022 Estimated Creatinine Clearance Calc 129.94 ml/min [facility] Estimated GFR (MDRD) Amer 160 mL/min >60 [facility] Comment on above: GFR Calc Estimated GFR (MDRD) Non-Af Amer 132 mL/min >60 [facility] Comment on above: Non- GFR Calc Platelets bldOrdered By: Dr. Hook on 11-07-2022 Platelets (Bld) [#/Vol] 454 10*3/uL 150-450 [facility] Protein Test strip Ql (U)Ord ered By: Dr. Hook on 11-07-2022 Protein Ql (U) Negative Negative [facility] Serum or plasma albumin lucien urement (mass/volume)Ordered By: Dr. Hook on 11-07-2022 Albumin [Mass/Vol] 3.5 g/dL 3.2-5.0 [facility] Serum or plasma albumin/glob ulin mass ratioOrdered By: Dr. Hook on 11-07-2022 Albumin/Globulin [Mass ratio] 0.9 {ratio} 0.9-2.4 [facility] Serum or plasma calcium lucien urement (mass/volume)Ordered By: Dr. Hook on 11-07-2022 Calcium [Mass/Vol] 9.7 mg/dL 8.5-10.1 [facility] Serum or plasma creatinine m easurement (mass/volume)Ordered By: Dr. Hook on 11-07-2022 Creatinine [Mass/Vol] 0.58 mg/dL 0.55-1.02 [facility] Comment on above: The validity of the calculated GFR & GFRAA in patients over 70 years has not been determined. Clinical correlation is essential. Serum or plasma urea nitroge n measurement (mass/volume)Ordered By: Dr. Hook on 11-07-2022 Urea nitrogen [Mass/Vol] 13 mg/dL 7-18 [facility] Squamous epithelial cells de tection in urine sediment by light microscopyOrdered By: Dr. Hook on 11-07-2022 Epithelial cells.squamous LM Ql (Urine sed) 0-5 SEEN /hpf 5-10 [facility] Thin prep Papanicolaou smear with manual screeningOrdered By: Dr. Hook on 11-07-2022 Thin prep Papanicolaou smear with manual screening 26 U/L 15-37 [facility] Thin prep Papanicolaou smear with manual screening 2 5-15 [facility] Urine blood detectionOrdered By: Dr. Hook on 11-07-2022 RBC Ql (U) Negative Negative [facility] RBC Ql (U) 0 SEEN /hpf 0-5 [facility] Urine clarityOrdered By: Dr. Hook on 11-07-2022 Clarity (U) Clear Clear [facility] Urine color determinationOrd ered By: Dr. Hook on 11-07-2022 Color (U) Yellow Yellow [facility] Urine glucose detectionOrder ed By: Dr. Hook on 11-07-2022 Glucose Ql (U) Normal mg/dl Normal [facility] Urine leukocyte esterase det ection by dipstickOrdered By: Dr. Hook on 11-07-2022 Leukocyte esterase Test strip Ql (U) Negative Negative [facility] Urine pHOrdered By: Dr. Chantel valenzuela on 11-07-2022 pH (U) 6.5 [pH] 5.0 - 8.0 [facility] Urine sediment bacteria coun t by microscopy (number/high power field)Ordered By: Dr. Hook on 11-07-2022 Bacteria LM.HPF (Urine sed) [#/Area] 0 /[HPF] None Seen [facility] Urine specific gravity measu rementOrdered By: Dr. Hook on 11-07-2022 Specific gravity (U) [Rel density] 1.015 1.002-1.030 [facility] Urobilinogen Auto test strip Ql (U)Ordered By: Dr. Hook on 11-07-2022 Urobilinogen Ql (U) Normal mg/dl Normal [facility] Vital Signs Date Time Vital Sign Value Performing Clinician Faci lity 11-07-2022 20:21-0400 Body temperature 97.9 [degF] [facility] 11-07-2022 20:21-0400 Diastolic blood pressure 70 mm[Hg] [facility] 11-07-2022 20:21-0400 Heart rate 70 /min [facility] 11-07-2022 20:21-0400 Respiratory rate 18 /min [facility] 11-07-2022 20:21-0400 SaO2% (BldA) [Mass fraction] 97 % [facility] 11-07-2022 20:21-0400 Systolic blood pressure 118 mm[Hg] [facility] 11-07-2022 17:42-0400 Body height 165.[address] [facility] 11-07-2022 17:42-0400 Body mass index (BMI) [Ratio] 40.6 kg/m2 [facility] 11-07-2022 17:42-0400 Body weight 110.[address] [facility] Encounters Encounter Date Encounter Type Care Provider Facility Start: 02-16-2024 End: 02-16-2024 Emergency department patient visit No Primary Care Physician Facility:[facility] Start: 11-07-2022 End: 11-07-2022 Emergency department patient visit [facility]-Emergency Department Procedures Date Procedure Procedure Detail Performing Clinician Start: 11-07-2022 Plain chest X-ray Start: 11-07-2022 Computed tomography of abdomen and pelvis with intravenous contrast H/O: section Status pos t section Plan of Treatment Date Care Activity Detail Author Patient Education ED Post Op Wound Check, Pain [facility] Work Phone: Patient referral [facility] Work Phone: Payers Date Payer Category Payer Self-pay Unknown [id number] Social History Date Type Detail Facility Start: 11-07-2022 Tobacco smoking status NHIS Unknown if ever smoked [facility] Start: 1995 Sex Assigned At Female [facility] NEGATED: Highlighted row [facility] Discharge summary 11-07-2022 Note Date & Type Note Facility 11-07-2022 Discharge summary Note Date/Time November 07, 2022 7:38pm [facility] Medical Records Department [address] [place] [address] Emergency Department Summary 11/07/22 MR#: [id number] Acct: [id number] Name: SAUL CORONA Rep #:[id number] : 1995 26 From: Mariluz Parra PCP: Care Physician,No Primary Status :REG ER Location: ED HPI History of Present Illness Chief Complaint: Wound Check Informant: patient and friend Narrative Narrative: Patient is a 26-year-old female, Andorran speaking, friend at the bedside to translate. She is presenting with postoperative abdominal pain, back pain and headaches. Patient had a 4 weeks ago in [facility]. This was a repeat . She states 3 days after the she started having weird pain at her incision site. Is been constant but she feels it is getting better. It was improved with Motrin but she ran out of it. 2 weeks ago she came to [place]. She notes the day she was discharged from the hospital she was diagnosed with pneumonia and put on 10 days of antibiotics. She also states that since her she has had low back pain and numbness in her right outer thigh. She did have an epidural with her . She did not tell hersurgeon about this but they did not do anything or seem concerned. She notes that she had some intermittent leg swelling which has resolved and she is also had a mild headache. She denies having any issues with her blood pressure. Shenotes that at 8 months she traveled on foot from [facility] to [place] and came into the [facility] via an asylum program. Patient has had some drainage from her incision site. She is worried there might be something still at her because of the way the pain is. She went to an urgent care earlier but was transferred to the ER for further evaluation because of her degree of abdominal pain. Patient does not have any physician or [employer] locally. She is now residing in [facility] Medical History no medical history Home Medications acetaminophen 500 mg tablet 1,000 mg PO Q6H PRN pain #20 tabs 11/07/22 [Rx Last Taken Unknown] ibuprofen 600 mg tablet 600 mg PO Q6H PRN PRN pain #20 TABLETS 11/07/22 [Rx Last Taken Unknown] Allergy/AdvReac Type Severity Reaction Status Date / Time No Known Allergies Allergy Verified 11/07/22 17:44 Social History Smoking Status: Never smoker ROS ROS ED Constitutional Constitutional ED: Denies chills or fever(s) Eyes Eyes: Denies change in vision ENT ENT ED: Denies sore throat Cardiovascular Cardiovascular: Denies chest pain or palpitations Respiratory/Chest Respiratory/Chest: Reports dyspnea; Denies cough Gastrointestinal Gastrointestinal: Reports abdominal pain; Denies constipation, diarrhea, nausea or vomiting Genitourinary Genitourinary ED: Reports other Details: no vaginal bleeding currently ; Denies dysuria or hematuria Musculoskeletal Musculoskeletal: Reports back pain; Denies arthralgias or myalgias Integumentary Denies rash Neurologic Neurologic: Reports headache(s) and paresthesias RLE Psychiatric Psychiatric: Denies anxiety Hematologic/Lymphatic Hematologic/Lymphatic: Denies easy bleeding or easy bruising EXAM Physical Exam Const Vital Signs: 11/07/22 17:42 11/07/22 20:21 11/07/22 20:21 Temperature 97.5 F L 97.9 F Temperature Source Temporal Temporal Pulse Rate 67 70 70 Respiratory Rate 18 18 Blood Pressure 119/70 118/70 Blood Pressure Mean 86 86 Pulse Ox 100 97 Oxygen Delivery Method Room Air Nasal Cannula Positive well nourished, well developed and obese General Appearance ED: well developed and NAD Nutritional Appearance: obese HEENT Reports moist mucous membranes Negative for trauma Eyes PERRL and EOMs intact bilaterally Neck supple Neck Narrative: No meningeal signs General: Negative for tenderness Chest Wall inspection of chest normal and palpation of chest normal Resp normal respiratory effort and clear to auscultation bilaterally Cardio regular rhythm and no murmurs Rate: tachycardic GI GI Narrative: Patient has significant tenderness at incision site. Uterus is palpated at the level of the umbilicus. No peritoneal signs. Inspection: Negative for abdominal distention Auscultation: normoactive bowel sounds Palpation: soft and tender suprapubic Back/Spine no CVA tenderness Back/Spine Narrative: Lower lumbar and paraspinal tenderness to palpation. No overlying erythema. [place]point area of tenderness to palpation Lumbar Spine / Lower Back: lumbar spinal tenderness Extremity normal to inspection General Extremety ED: Negative for edema or tenderness General Extremity: Negative for edema Neuro oriented x3 Sensorium / Orientation: alert Motor Exam: Negative for general weakness Psych mental status grossly normal Skin Skin Narrative: Healing low transverse surgical incision. No associated erythema or drainage appreciated at this time. The area is slightly macerated however patient does have a protuberant abdomen that folds over the area. MDM MDM MDM Narrative Medical decision making narrative: Patient is evaluated for multiple complaints after . She appears nontoxic no acute distress. She has a lot of tenderness in her lower abdomen, more than I would expect this see given that she is 4-week status post . Do not see any obvious drainage or signs of cellulitis. She has a mild anemia of 10.0 which seems asymptomatic as she is not lightheaded and has normal vital signs. Suspect this is relatively normal given her postoperative status. She does not have a leukocytosis. CMP unremarkable. Urinalysis is normal with no signs of protein or infection. She is not hypertensive I do not think this is preeclampsia. CT of the abdomen and pelvis shows postsurgical changes but no signs of fluid collection, abscess or cellulitis. I do not thinkpatient requires antibiotics. Case is discussed with [employer] on-call, Dr. Cynthia Simmons, who is agreeable with outpatient follow-up. Patient is given an abdominal binder. She is given IV fluids and Toradol in the ER does seem more comfortable. Is given a referral to the [facility]. Will be discharged with prescription for ibuprofen and Tylenol. Counseled that she doesnot have to fill the prescription she can just take [id number] Tylenol andibuprofen instead. Manager Installation used for all interactions with the patient. Patient given return precautions. Discharged home in stable condition. Lab Data Labs: Laboratory Results - last 24 hr 11/07/22 11/07/22 11/07/22 19:44 19:45 20:00 WBC 8.2 RBC 3.65 L Hgb 10.0 L Hct 33.5 L MCV 91.8 MCH 27.4 MCHC 29.9 L RDW Std Deviation 49.2 H RDW Coeff of Tejal 14.6 Plt Count 454 H MPV 9.5 Immature Gran % (Auto) 0.200 Neut % (Auto) 59.7 Lymph % (Auto) 30.6 [place] % (Auto) 6.7 Eos % (Auto) 2.1 Baso % (Auto) 0.7 Absolute Neuts (auto) 4.9 Absolute Lymphs (auto) 2.52 Nucleated RBC % 0 Sodium 137 Potassium 3.9 Chloride 107 Carbon Dioxide 28.0 Anion Gap 2 L BUN 13 Creatinine 0.58 Estim Creat Clear Calc 129.94 Est GFR (MDRD) Af Amer 160 Est GFR (MDRD) Non-Af 132 BUN/Creatinine Ratio 22.6 H Glucose 89 Calcium 9.7 Total Bilirubin 0.20 AST 26 ALT 35 Alkaline Phosphatase 142 H Total Protein 7.6 Albumin 3.5 Globulin 4.1 Albumin/Globulin Ratio 0.9 Urine Color Yellow Urine Clarity Clear Urine pH 6.5 Ur Specific [place] 1.015 Urine Protein Negative Urine Glucose (UA) Normal Urine Ketones Negative Urine Occult Blood Negative Urine Nitrite Negative Urine Bilirubin Negative Urine Urobilinogen Normal Ur Leukocyte Esterase Negative Urine RBC 0 SEEN Urine WBC 0 SEEN Ur Squamous Epith Cells 0-5 SEEN Urine Bacteria 0 SEEN Urine Mucus 0 SEEN Urine Test Negative Radiography Chest X-Ray - ED: 2 View, Read by ED Physician, Read by Radiologist and No AcuteDisease Diagnostic Testing: Clinical Impression(s) from Imaging Studies Abdomen/Pelvis CT 11/07/22 20:31 IMPRESSION: Mildly enlarged uterus with visible scar overlying stranding density in the surrounding mesenteric fat likely representing normal postsurgical changes. No focal fluid collection or abnormal free fluid in the pelvis. Otherwise normal exam. Electronically Signed: Pablo Sharp DO at 21:33 EDT , Chest X-Ray 11/07/22 20:35 IMPRESSION: 1. No radiographic evidence of acute cardiopulmonary disease. Electronically Signed: Pablo Sharp DO at 21:12 EDT , Discharge Plan Triage Chief Complaint: Wound Check ED Provider: Mariluz Hook Dx/Rx/DC Orders Clinical Impression: Status post section, Lower abdominal pain, Headache, Paresthesia of right lower extremity Instructions: ED Post Op Wound Check, Pain Prescriptions: New ibuprofen 600 mg tablet 600 mg PO Q6H PRN PRN (Reason: pain) Qty: 20 0RF acetaminophen 500 mg tablet 1,000 mg PO Q6H PRN (Reason: pain) Qty: 20 0RF Primary Care Provider: Care Physician,No Primary Referrals: Cynthia Simmons DO [Med Staff - Active Staff] - 1 Week [facility] [Non-Staff] - As soon as possible Care Physician,No Primary [Primary Care Provider] - Activity Restrictions/Additional Instructions: Wear the abdominal binder. This should help with pain. Alternate ibuprofen andTylenol. No signs of infection or acute abnormalities on your work-up today. Please follow-up with [employer]. You have also been referred to medical clinic foroutpatient follow up/routine health maintenance. Disposition Disposition: Home, Self Care What to do if you have Problems For any increased pain, shortness of breath, bleeding, nausea or vomiting, chestpain, or any unexpected problems, contact your Primary Care Provider. Call [facility] ([phone]) or report to the closest Emergency Room. Call 911 if necessary. 11/07/222324 <Electronically signed by Mariluz Hook DO> Cosigner Signature (if applicable): CC: No Primary Care Physician ~ Signed [facility] Work Phone: Evaluation note Note Date & Type Note Facility Evaluation note No assessment information availa ble [facility] Work Phone: Hospital Discharge instructions Note Date & Type Note Facility Hospital Discharge instructions Additional Instructions Wear the abdominal binder. This should help with pain. Alternate ibuprofen and Tylenol. No signs of infection or acute abnormalities on your work-up today. Please follow-up with [employer]. You have also been referred to medical clinic for outpatient follow up/routine health maintenance. [facility] Work Phone: Chief Complaint and Reason for Visit Chief Complaint WOUND CHECK Advance Directives No Advanced Directives Records Found Advance Directive Response Recorded Date/ Time Living Will No November 07, 2022 6:42pm Power of Head Chopper No November 07 6:42pm Summary Purpose Family History No Family History Records Found Additional Source Comments Care Teams (unrecognized sec tion and content) Team Status: Active Member Role Status Dates No Primary Care Physician Primary Care Provider Active Team Status: Inactive Member Role Status Dates No Primary Care Physician Primary Care Provider Active Dr. Mariluz Hook DO Emergency Provider Active Goals (unrecognized section and content) Goals may be documented in a n alternate section INFORMATION SOURCE (unrecogn ized section and content) DATE CREATED AUTHOR 03/15/[address] [facility] FOR RECORDS PERTAINING TO PATIENTS WHO ARE OR HAVE BEEN ENROLLED IN A CHEMICAL DEPENDENCY/SUBSTANCEABUSE PROGRAM, SOME INFORMATION MAY BE OMITTED. This clinical summary was aggregated from multiple sources. Caution should be exercised in using it in the provision of clinical care. This summary normalizes information from multiple sources, and as a consequence, information in this document may materially change the coding, format and clinical context of patient data. In addition, data may be omitted in some cases. CLINICAL DECISIONS SHOULD BE BASED ON THE PRIMARY CLINICAL RECORDS. [employer] [facility]. provides no warranty or guarantee of the accuracy or completeness of information in this document.
[2025-01-08 01:27] LABS: Internal QC Validated? YES +Cl - CLEAR BKGD; Pregnancy, Serum, hCG Quali. POSITIVE Negative
[2025-01-08 01:50] LABS: Lactic Acid 1.1 mmol/L (0.0-2.0)
[2025-01-08 01:50] LABS: Ammonia 27.1 umol/L (11-51)
[2025-01-08 01:52] LABS: Alcohol, Blood (Medical)-Serum < 10.1 mg/dL (<=10.0)
[2025-01-08 01:56] VITALS: BP 103/54; PULSE 63; RESP 16; TEMP 36.8; O2SAT 100
[2025-01-08 01:59] LABS: hCG Titer Quant., Serum 6504 mIU/mL (<9 non-preg)
[2025-01-08 02:00] VITALS: BP 103/54; PULSE 63; RESP 16; TEMP 36.8; O2SAT 100
[2025-01-08] MEDS: 0.9% Normal Saline (1000mL) 1,000 ML 999 ML IV (02:05)
[2025-01-08 02:21] LABS: Mucous, Urine 0 SEEN /hpf (<or=2+)
[2025-01-08 02:22] LABS: Color, Urine Yellow (Yellow); Glucose, Dipstick Normal (Normal); Ketone-Dipstick Negative (Negative); Leukocyte Esterase-Dipstick 100 /ul (Negative); Nitrite-Dipstick Negative (Negative); Occult Blood-Urine 250 /ul (Negative); Protein-Dipstick 30 mg/dl (Negative); Urine Bilirubin Dipstick Negative (Negative); Urine Clarity Cloudy (Clear); Urine Urobilinogen Normal (Normal)
[2025-01-08 02:31] LABS: Anion Gap 11 (5-15); BUN 8 mg/dL (4-19); BUN/Creat Ratio 13.1 RATIO (10-20); Calcium,Total 9.9 mg/dL (7.6-11.0); Carbon Dioxide 19.8 mmol/L (21.0-32.0); Chloride 103 mmol/L (98-108); Creatinine, Serum 0.62 mg/dL (0.70-1.20); EST Glomerular Filtration Rate 122 (>60); Glucose 109 mg/dL (70-99); Potassium 3.9 mmol/L (3.3-5.1); Sodium Level 134 mmol/L (133-145)
[2025-01-08 02:32] LABS: Squamous Epithelial Cells - UA 10-25 SEEN /hpf (5-10); White Blood Cells 10-25 SEEN /hpf (0-5)
[2025-01-08 02:35] LABS: Bacteria 1+ /hpf (None Seen); Red Blood Cells-Urine 5-10 SEEN /hpf (0-5)
[2025-01-08 02:43] LABS: Amphetamine Urine NEGATIVE (<1000 ng/mL); Barbiturate Urine NEGATIVE (< 200 ng/mL); Benzodiazepine Urine NEGATIVE (< 200 ng/mL); Buprenorphine Urine NEGATIVE (< 200 ng/mL); Cocaine Urine NEGATIVE (< 300 ng/mL); Fentanyl, Urine NEGATIVE; Methadone Urine NEGATIVE (< 300 ng/mL); Opiates Urine NEGATIVE (< 300 ng/mL); Oxycodone, Urine NEGATIVE (< 100 ng/mL); PCP Urine NEGATIVE (< 25 ng/mL); THC Urine NEGATIVE (< 50 ng/mL)
--- NOTE | 2025-01-08 02:51 | EX.ED.DYSGE1 ---
HPI History of Present Illness Chief Complaint: Unresponsive Informant: patient, family, friend and EMS Narrative Narrative: Patient is a 29-year-old female with reported past medical history of anemia. This evening she was at work at [employer] and reportedly was not feeling well. She was then found by another person and was reportedly unresponsive. Secondary to this EMS was called. EMS states when they arrived she appeared awake with eyes open and would track but not respond to them or follow commands. They state her blood sugar was checked and was normal. Based on the reported unresponsiveness and potential derangement to mental status she was transported to the ER for evaluation. The patient does speak Irish Creole and therefore there is potential of language barrier as her reason for not following commands. Please note a shipping room supervisor was used during evaluation of the patient. She also had family and friend with her who would answer questions as the patient was not doing so upon her initial arrival. [facility] Medical History (Updated 01/08/25 @ 02:[address] Aldair Walker, DO) Anemia Home Medications ?Medication ?Instructions ?Recorded ?Last Taken ?Type amoxicillin 500 mg capsule 500 mg PO TID 7 days #21 caps 01/08/25 Unknown Rx Allergy/AdvReac Type Severity Reaction Status Date / Time No Known Allergies Allergy Verified 01/08/25 00:48 Family History no significant family his Social History Smoking Status: Never smoker ROS ROS ED Review of Systems ROS Unobtainable: other Details: Unable to obtain as patient is not answering questions EXAM Physical Exam Const Vital Signs: 01/08/25 00:56 01/08/25 01:56 01/08/25 02:00 Temperature 98.1 F 98.3 F 98.3 F Temperature Source Axillary Oral Oral Pulse Rate 70 63 63 Respiratory Rate 20 H 16 16 Blood Pressure 125/66 H 103/54 L 103/54 L Blood Pressure Mean 85 70 70 Pulse Ox 100 100 100 Oxygen Delivery Method Room Air Room Air Room Air 01/08/25 02:59 Temperature 98.3 F Temperature Source Pulse Rate 62 Respiratory Rate 16 Blood Pressure 112/54 L Blood Pressure Mean 73 Pulse Ox 100 Oxygen Delivery Method Positive well nourished, well developed and obese General Appearance ED: well developed; Negative for pallor Nutritional Appearance: obese HEENT Reports moist mucous membranes HEENT Narrative: Normocephalic atraumatic; no signs of depressed or basilar skull fracture No tongue or lip swelling no oral lesions no airway edema or compromise No tongue or cheek biting noted to suggest seizure activity Eyes PERRL and EOMs intact bilaterally General Eye ED: Negative for scleral icterus Neck supple Neck Narrative: No bony deformity or step-off of the cervical spine no midline tenderness to palpation No nuchal rigidity or meningeal signs Chest Wall palpation of chest normal Chest Narrative: No bony deformity or crepitus noted Resp normal respiratory effort and clear to auscultation bilaterally Resp Narrative: No nasal flaring retractions tachypnea or accessory muscle use Cardio regular rate and regular rhythm Rate: other Other Details: Heart is regular rate and rhythm without murmurs rubs or gallops Radial and carotid pulses are equal and symmetric GI normal to inspection, nondistended, normoactive bowel sounds, non-tender, non-distended and no masses GI Narrative: No voluntary guarding or rigidity or pulsatile mass No organomegaly noted Auscultation: normoactive bowel sounds Palpation: soft Back/Spine Back/Spine Narrative: No bony deformity or step-off of the thoracic or lumbar spine No midline tenderness to palpation Extremity normal to inspection Extremity Narrative: Pelvis is stable there is no shortening or external rotation of either lower extremity No asymmetric edema or pitting edema No signs of long bone injury or joint effusion Compartments are soft and compressible going against compartment syndrome Neuro CN's II-XII intact bilaterally Neuro Narrative: GCS of 12. This is based on the fact patient is not speaking Patient is awake and alert The patient will track with her eyes and follow commands and is able to move all extremities. There is no obvious facial droop. No truncal ataxia However the patient will not speak; it is unsure if this is related to potential true neurologic condition or language barrier However there is no obvious focal neurologic deficit on exam Sensorium / Orientation: alert Motor Exam: strength 5/5 throughout Psych Psych Narrative: Patient has a depressed/flat affect Mood & Affect: depressed Skin no rashes or lesions noted and no wounds General Skin Exam: Negative for jaundice or pallor MDM MDM MDM Narrative Medical decision making narrative: Patient arrived to the ER with stable vitals., She is not speaking but will follow commands and can move all extremities and there is no obvious focal neurologic deficit. There is potential that she is not speaking as her [place] language is [place] Creole. With the patient reportedly found down and unresponsive there is concern for potential seizure activity. However there was no loss of bowel or bladder and no tongue or cheek biting to suggest this. According to family as the patient was feeling overall unwell there is concerned she could have a systemic infection such as UTI or potential acute kidney injury or electrolyte abnormality or this could be due to potential . Therefore I did elect to perform basic laboratory studies with urine sample. With the change in mental status and unresponsiveness head CT was obtained to rule out brain mass subarachnoid or subdural hemorrhage. CT revealed no acute findings. Labs showed no clinically significant findings other than she is . Without intervention other than time the patient then began speaking. On reevaluation she is awake alert oriented person place and time she is speaking without slurred speech or aphasia. She is able to move all extremities and has no pain with motion. Her exam does not suggest infection and there has been no cardiac dysrhythmia noted while in the monitor. Workup does show but she denies vaginal bleeding or abdominal pain and therefore I have low concern for an ectopic or spontaneous miscarriage I do not feel the need for an emergent ultrasound. As the patient's overall workup reveals no signs of seizure or stroke or bleed or infectious process her vitals are stable and she is now back at her baseline mental status I do not feel the need for further intervention in the ER and she is otherwise safe for discharge History & Record Review Discussion w/independent historian: EMS personnel and Family Lab Data Attestation: I reviewed the patient's lab results. Labs: Laboratory Results - last 24 hr 01/08/25 01/08/25 01/08/25 00:51 00:55 01:08 WBC 8.1 RBC 4.24 Hgb 9.4 L Hct 31.6 L MCV 74.5 L MCH 22.2 L MCHC 29.7 L RDW Std Deviation 48.4 H RDW Coeff of Tejal 18.2 H Plt Count 440 MPV 9.9 Immature Gran % (Auto) 0.400 Neut % (Auto) 56.2 Lymph % (Auto) 34.3 [place] % (Auto) 7.1 Eos % (Auto) 1.4 Baso % (Auto) 0.6 Absolute Neuts (auto) 4.5 Absolute Lymphs (auto) 2.76 Nucleated RBC % 0 Sodium 134 Potassium 3.9 Chloride 103 Carbon Dioxide 19.8 L Anion Gap 11 BUN 8 Creatinine 0.62 L Estim Creat Clear Calc 172.10 Est GFR (MDRD) Non-Af 122 BUN/Creatinine Ratio 13.1 Glucose 109 H Lactic Acid 1.1 Calcium 9.9 Magnesium 2.0 Ammonia 27.1 TSH 4.820 H HCG, Quant 6504 H Serum , Qual POSITIVE Urine Color Urine Clarity Urine pH Ur Specific [place] Urine Protein Urine Glucose (UA) Urine Ketones Urine Occult Blood Urine Nitrite Urine Bilirubin Urine Urobilinogen Ur Leukocyte Esterase Urine RBC Urine WBC Ur Squamous Epith Cells Urine Bacteria Urine Mucus Urine Opiates Screen U Buprenorphine Qual Ur Oxycodone Screen Urine Methadone Screen Urine Fentanyl Screen Ur Barbiturates Screen Ur Phencyclidine Scrn Ur Amphetamines Screen U Benzodiazepines Scrn Urine Cocaine Screen U Cannabinoids Screen Ethyl Alcohol < 10.1 POC Glucose 99 01/08/25 02:15 WBC RBC Hgb Hct MCV MCH MCHC RDW Std Deviation RDW Coeff of [place] Plt Count MPV Immature Gran % (Auto) Neut % (Auto) Lymph % (Auto) [place] % (Auto) Eos % (Auto) Baso % (Auto) Absolute Neuts (auto) Absolute Lymphs (auto) Nucleated RBC % Sodium Potassium Chloride Carbon Dioxide Anion Gap BUN Creatinine Estim Creat Clear Calc Est GFR (MDRD) Non-Af BUN/Creatinine Ratio Glucose Lactic Acid Calcium Magnesium Ammonia TSH HCG, Quant Serum , Qual Urine Color Yellow Urine Clarity Cloudy Urine pH 6.0 Ur Specific [place] 1.020 Urine Protein 30 H Urine Glucose (UA) Normal Urine Ketones Negative Urine Occult Blood 250 H Urine Nitrite Negative Urine Bilirubin Negative Urine Urobilinogen Normal Ur Leukocyte Esterase 100 H Urine RBC 5-10 SEEN Urine WBC 10-25 SEEN Ur Squamous Epith Cells 10-25 SEEN Urine Bacteria 1+ Urine Mucus 0 SEEN Urine Opiates Screen NEGATIVE U Buprenorphine Qual NEGATIVE Ur Oxycodone Screen NEGATIVE Urine Methadone Screen NEGATIVE Urine Fentanyl Screen NEGATIVE Ur Barbiturates Screen NEGATIVE Ur Phencyclidine Scrn NEGATIVE Ur Amphetamines Screen NEGATIVE U Benzodiazepines Scrn NEGATIVE Urine Cocaine Screen NEGATIVE U Cannabinoids Screen NEGATIVE Ethyl Alcohol POC Glucose Radiography Diagnostic Testing: Clinical Impression(s) from Imaging Studies Brain CT 01/08/25 00:59 IMPRESSION: Normal unenhanced CT scan of the brain. [facility] Chest X-Ray 01/08/25 01:15 IMPRESSION: No evidence for acute abnormality. Reading Location: [place] [id number] Chest x-ray is interpreted by the emergency medicine physician reveals no acute infiltrate or pneumothorax or pleural effusion Discharge Plan Triage Chief Complaint: Unresponsive ED Provider: Aldair Walker Dx/Rx/DC Orders Clinical Impression: at early stage, Mental status change resolved Instructions: What Is Care?, 1st Trimester, ED Confusion Prescriptions: New amoxicillin 500 mg capsule 500 mg PO TID 7 Days Qty: 21 0RF Primary Care Provider: Care Physician,No Primary Referrals: Wing Jeff MD [Med Staff - Active Staff] - Care Physician,No Primary [Primary Care Provider] - Activity Restrictions/Additional Instructions: Your workup today showed that you are but only a few weeks along. There is also questionable infection in your urine sample. Therefore please take the amoxicillin/antibiotic as directed. Follow-up with NETWORK TECHNICAL ANALYST so you can establish care and return to the ER should you have any further concerns Print Language: Sammarinese Creole Disposition Disposition: Home, Self Care Discharge Date/Time: 01/08/25 03:02
[2025-01-08 02:59] VITALS: BP 112/54; PULSE 62; RESP 16; TEMP 36.8; O2SAT 100
== END 2025-01-08 03:02 | disposition home or self-care (01) ==
PROVIDERS: Emergency Provider Emergency Medicine; Visit Provider Emergency Medicine
DX: R41.82 Altered mental status, unspecified (principal); F32.A Depression, unspecified; O99.210 Obesity complicating pregnancy, unspecified trimester; Z3A.00 Weeks of gestation of pregnancy not specified; O99.340 Other mental disorders complicating pregnancy, unspecified trimester; E66.9 Obesity, unspecified
CPT/HCPCS: 70450; 71045; 80048; 80307; 81001; 82077; 82140; 82962; 83605; 83735; 84443; 84702; 84703; 85025; 96360; 99285; A4216